=== PATIENT | female | born 1930 | race Asian ===

== ENCOUNTER 2018-03-10 18:04 | Emergency (ER) | payer MEDICARE, MEDICAID ==
[~2018-03-10] VITALS: Ht 152.4 cm; Wt 44.0 kg
[2018-03-10] MEDS ORDERED: IRBE150T25 PO (18:36)
[2018-03-10] MEDS ORDERED: HYDR12.53 PO (18:37)
[2018-03-10] MEDS ORDERED: ALEN70TA3 PO (18:37)
[2018-03-10 18:40] LABS: BASOPHILS # (AUTO) 0.05 x10^3/uL (0-0.1); BASOPHILS % (AUTO) 1 % (0-1); EOSINOPHILS # (AUTO) 0.02 x10^3/uL (0-0.4); EOSINOPHILS % (AUTO) 0 % (1-7); LYMPHOCYTES % (AUTO) 21 % (22-44); MD NO; MEAN CORPUSCULAR HEMOGLOBIN 33.3 pg (27.0-34.8); MEAN CORPUSCULAR HGB CONC 33.9 g/dL (32.4-35.8); MEAN CORPUSCULAR VOLUME 98.2 fL (80-100); MEAN PLATELET VOLUME 7.3 fL (7.4-10.4); MONOCYTES # (AUTO) 0.43 x10^3/uL (0.2-0.8); MONOCYTES % (AUTO) 7 % (2-9); NEUTROPHILS # (AUTO) 4.16 x10^3/uL (1.8-6.8); NEUTROPHILS % (AUTO) 71 % (42-75); PLATELET COUNT 288 x10^3/uL (130-400); RED BLOOD COUNT 3.91 x10^6/uL (3.82-5.3); RED CELL DISTRIBUTION WIDTH 12.9 % (9.6-15.2)
[2018-03-10 18:47] LABS: ALBUMIN 3.8 g/dL (3.4-5.0); ANION GAP 11 mmol/L (5-15); CALCIUM 8.8 mg/dL (8.5-10.1); CHLORIDE 98 mmol/L (98-107)
[2018-03-10 18:50] LABS: ALANINE AMINOTRANSFERASE 24 U/L (12-78); ALKALINE PHOSPHATASE 52 U/L (45-117); BILIRUBIN,TOTAL 0.4 mg/dL (0.2-1.0); CREATININE 0.76 mg/dL (0.55-1.02); TOTAL PROTEIN 7.9 g/dL (6.4-8.2)
[2018-03-10 19:14] VITALS: BP 150/77
== END 2018-03-10 19:46 | disposition home or self-care (01) ==
LOC: ED 19:05
DX: M25.572 Pain in left ankle and joints of left foot (principal)
CPT/HCPCS: 36415; 80053; 84550; 85025; 99285

== ENCOUNTER 2020-02-02 12:42 | Emergency (ER) | payer MEDICARE, MEDICAID ==
[~2020-02-02] VITALS: Ht 154.9 cm; Wt 44.4 kg
[~2020-02-02 12:42] MED LIST: ALEN70TA3 PO; HYDR12.517 PO; IRBE150T9 PO
[2020-02-02] MEDS ORDERED: SODIUM CHLORIDE 0.9% 1,000ML IVBOLUS ONE (13:30)
[2020-02-02] MEDS ORDERED: SODIUM CHLORIDE FLUSH 10ML SYR IVF ONE (13:30)
--- NOTE | 2020-02-02 14:05 | NUR ---
PT WITH C/O COUGH X10 DAYS AND REPORTED SYNCOPAL EVENT TODAY. PT REPORTED TO DAUGHTER THAT SHE THEN WOKE AFTER BEING UNCONCIOUS FOR 40MIN. PT ALSO WITH DIARRHEA X6 DAYS. PT DENIES FEVERS, CP, SOB AT THIS TIME
[2020-02-02 14:22] VITALS: BP 150/80
--- NOTE | 2020-02-02 14:25 | NUR ---
PIV INITIATED, PT MEDICATED PER MAR
[2020-02-02 14:30] LABS: BASOPHILS % (AUTO) 0 % (0-1); EOSINOPHILS # (AUTO) 0.07 x10^3/uL (0-0.4); EOSINOPHILS % (AUTO) 1 % (1-7); LYMPHOCYTES % (AUTO) 4 % (22-44); MD NO; MEAN CORPUSCULAR HEMOGLOBIN 33.3 pg (27.0-34.8); MEAN CORPUSCULAR HGB CONC 34.1 g/dL (32.4-35.8); MEAN CORPUSCULAR VOLUME 97.7 fL (80-100); MONOCYTES # (AUTO) 0.26 x10^3/uL (0.2-0.8); MONOCYTES % (AUTO) 3 % (2-9); NEUTROPHILS # (AUTO) 9.01 x10^3/uL (1.8-6.8); NEUTROPHILS % (AUTO) 93 % (42-75); PLATELET COUNT 284 x10^3/uL (130-400); RED BLOOD COUNT 3.71 x10^6/uL (3.82-5.3); RED CELL DISTRIBUTION WIDTH 12.9 % (9.6-15.2)
[2020-02-02 14:39] LABS: ALBUMIN 3.5 g/dL (3.4-5.0); ANION GAP 5 mmol/L (5-15); CALCIUM 8.7 mg/dL (8.5-10.1); CHLORIDE 100 mmol/L (98-107); CREATININE 0.74 mg/dL (0.55-1.02)
[2020-02-02 14:43] LABS: ALKALINE PHOSPHATASE 59 U/L (45-117); BILIRUBIN,TOTAL 0.5 mg/dL (0.2-1.0); TOTAL PROTEIN 7.3 g/dL (6.4-8.2); TROPONIN I < 0.015 ng/mL (0.000-0.045)
[2020-02-02 14:45] LABS: ALANINE AMINOTRANSFERASE 27 U/L (12-78)
--- NOTE | 2020-02-02 16:26 | NUR ---
Patient given discharge instructions and they have confirmed that they understand the instructions. Patient ambulatory with steady gait.
== END 2020-02-02 16:27 | disposition home or self-care (01) ==
LOC: ED 13:14
DX: R55 Syncope and collapse (principal); R19.7 Diarrhea, unspecified; R05 Cough; R51 Headache; I10 Essential (primary) hypertension; I44.7 Left bundle-branch block, unspecified
CPT/HCPCS: 36415; 71045; 80053; 83605; 83690; 83880; 84484; 85025; 93005; 99285